=== PATIENT | male | born 1985 | race Caucasian/White ===

== ENCOUNTER 2017-12-15 17:29 | Emergency (ER) | payer OTHER ==
[~2017-12-15] VITALS: Ht 180.3 cm; Wt 127.2 kg
[~2017-12-15 17:29] MED LIST: FLEXERIL10 MG PO; HYDROCHLOROTH12.5 M3 PO; KEFLEX500 MG PO; PREDNISONE10 MG PO; TORADOL10 MG PO; ULTRAM50 MG PO
[2017-12-15] MEDS ORDERED: INDOCIN50 MG PO (19:29)
[2017-12-15] MEDS ORDERED: AUGMENTIN875 MG PO (19:29)
[2017-12-15] MEDS ORDERED: LIDOCAINE20 MG/1 M5 PO (19:29)
[2017-12-15] MEDS ORDERED: NORCO 7.5/321 TABLET PO (19:29)
[2017-12-15 20:19] VITALS: BP 155/79
== END 2017-12-15 20:19 | disposition home or self-care (01) ==
LOC: EME 17:29
DX: K02.9 Dental caries, unspecified (principal); F17.200 Nicotine dependence, unspecified, uncomplicated
CPT/HCPCS: 99281; 99284; J1100; J1885